=== PATIENT | male | born 1955 | race Caucasian/White ===

== ENCOUNTER 2023-03-22 05:20 | Inpatient (IN) | payer OTHER ==
[~2023-03-22] VITALS: Ht 175.3 cm; Wt 108.9 kg
[2023-03-22] MEDS ORDERED: SCOPOLAMINE HYDROBROMIDE 1 MG PATCH .72 H (TRANSDERM-SCOP) TD ONE ×2 (05:41→06:00)
[2023-03-22] MEDS ORDERED: CELECOXIB 100 MG CAPSULE ONE (05:41)
[2023-03-22] MEDS ORDERED: ACETAMINOPHEN 500 MG TABLET ONE (05:41)
[2023-03-22] MEDS ORDERED: oxyCODONE HCL 10 MG TAB.ER.12H PO ONE ×2 (05:42→06:00)
[2023-03-22] MEDS ORDERED: GABAPENTIN 300 MG CAPSULE ONE (05:42)
[2023-03-22] MEDS ORDERED: GABAPENTIN 400 MG CAPSULE PO ONE (06:00)
[2023-03-22] MEDS ORDERED: ACETAMINOPHEN 500 MG TABLET PO ONE (06:00)
[2023-03-22] MEDS ORDERED: CELECOXIB 100 MG CAPSULE PO ONE (06:00)
[2023-03-22] MEDS ORDERED: CEFAZOLIN SOD 2 GM in D5W 50 ML IV ONE (06:00)
[2023-03-22] MEDS ORDERED: BISACODYL 10 MG/SUPPOSITORY RC PRN (07:15)
[2023-03-22] MEDS ORDERED: LACTULOSE 20 GM/30 ML UDC PO PRN (07:15)
[2023-03-22] MEDS ORDERED: NALOXONE HCL 0.4 MG/ML AMP (NARCAN) IVP PRN ×4 (07:15→08:30)
[2023-03-22] MEDS ORDERED: DIPHENHYDRAMINE HCL 25 MG CAPSULE PO PRN (07:15)
[2023-03-22] MEDS ORDERED: METOCLOPRAMIDE HCL 10 MG/2 ML VIAL IVP PRN ×2 (07:15→08:30)
[2023-03-22] MEDS ORDERED: LR 1,000 ML IV SCH (08:30)
[2023-03-22] MEDS ORDERED: LABETALOL 100 MG/ 20ML VIAL IVP PRN (08:30)
[2023-03-22] MEDS ORDERED: HYDROmorphone 1 MG/ML INJ. CARTRIDGE IVP PRN ×5 (08:30→11:00)
[2023-03-22] MEDS ORDERED: DIPHENHYDRAMINE INJ 50 MG/ML VIAL IVP PRN (08:30)
[2023-03-22] MEDS ORDERED: MEPERIDINE HCL/PF 25 MG/ML DISP.SYRIN IVP PRN (08:30)
[2023-03-22] MEDS ORDERED: hydrALAZINE HCL 20 MG/ML VIAL IVP PRN (08:30)
[2023-03-22] MEDS ORDERED: ONDANSETRON HCL 4 MG/2 ML VIAL IVP PRN ×2 (08:30→11:45)
[2023-03-22] MEDS ORDERED: NOR10 PO (10:23)
[2023-03-22] MEDS ORDERED: LIP20 PO (10:25)
[2023-03-22] MEDS ORDERED: HYDR12.55 PO (10:25)
[2023-03-22] MEDS ORDERED: PRO10 PO (10:26)
[2023-03-22] MEDS ORDERED: LOSA-413 PO (10:26)
[2023-03-22] MEDS ORDERED: TAMS-11 PO (10:26)
[2023-03-22] MEDS: HYDROmorphone 1 MG/ML INJ. CARTRIDGE ONE ×4 (10:27→10:48)
[2023-03-22] MEDS ORDERED: LORATADINE 10 MG TABLET PO PRN (11:00)
[2023-03-22] MEDS ORDERED: oxyCODONE HCL 5 MG TABLET PO PRN ×2 (11:00)
[2023-03-22] MEDS ORDERED: traMADol HCL HCL 50 MG TABLET (ULTRAM) PO PRN (11:00)
[2023-03-22] MEDS ORDERED: TAMSULOSIN HCL 0.4 MG CAP PO ONE (12:30)
[2023-03-22] MEDS: ACETAMINOPHEN 500 MG TABLET PO SCH ×2 (14:14→21:18)
[2023-03-22 20:30] VITALS: BP_SYST 135; PULSE 78; RESP 20; TEMP 97.5; O2SAT 96
[2023-03-22] MEDS ORDERED: ATORVASTATIN 20 MG TABLET PO SCH (21:00)
[2023-03-22] MEDS: SENNOSIDES/DOCUSATE SODIUM 1 TAB TABLET(SENOKOT-S) PO SCH (21:19)
[2023-03-22] MEDS: KETOROLAC TROMETHAMINE 10 MG TABLET (TORADOL) PO SCH (21:19)
[2023-03-22 22:00] VITALS: O2SAT 95
[2023-03-22] MEDS: ceFAZolin SODIUM 2 GM in D5W 50 ML IV SCH ×2 (22:00→23:25)
[2023-03-23] VITALS: BP_SYST 139; PULSE 84; RESP 20; TEMP 98.4; O2SAT 96
[2023-03-23 05:38] LABS: BASOPHILS % (AUTO) 0.1 % (0.0-2.0); HEMATOCRIT 39.1 % (36-54); HEMOGLOBIN 12.6 g/dL (14.0-18.0); LYMPHOCYTES # (AUTO) 1.3 K/uL (1.0-5.5); LYMPHOCYTES % (AUTO) 9.2 % (20.5-51.5); MEAN CORPUSCULAR HEMOGLOBIN 28 pg (27-31); MEAN CORPUSCULAR HGB CONC 32 % (32-36); MEAN CORPUSCULAR VOLUME 87 fL (79.0-98.0); MONOCYTES # (AUTO) 1.2 K/uL (0.0-1.0); MONOCYTES % (AUTO) 8.3 % (1.7-9.3); NEUTROPHILS # (AUTO) 11.5 K/uL (1.8-7.7); NEUTROPHILS % (AUTO) 82.4 % (40.0-70.0); PLATELET COUNT (AUTO) 189 K/uL (130-430); RED BLOOD CELL COUNT(AUTO) 4.49 MIL/uL (4.2-6.2); RED CELL DISTRIBUTION WIDTH 14.5 % (9.0-15.0); WHITE BLOOD COUNT (AUTO) 13.9 K/uL (4.8-10.8)
[2023-03-23] MEDS: ceFAZolin SODIUM 2 GM in D5W 50 ML IV SCH (06:00)
[2023-03-23 06:10] LABS: ALBUMIN 3.4 g/dL (3.4-4.8); CALCIUM 8.8 mg/dL (8.4-11.0); CREATININE 1.07 mg/dL (0.55-1.30); POTASSIUM 3.8 mmol/L (3.5-5.1); TOTAL BILIRUBIN 0.5 mg/dL (0.0-1.0); TOTAL PROTEIN, SERUM 6.7 g/dL (6.4-8.3)
[2023-03-23] MEDS: ACETAMINOPHEN 500 MG TABLET PO SCH (06:33)
[2023-03-23] MEDS: KETOROLAC TROMETHAMINE 10 MG TABLET (TORADOL) PO SCH (06:33)
[2023-03-23] MEDS ORDERED: NS IRRIG SOLN 1000 ML IR ONE (07:21)
[2023-03-23] MEDS ORDERED: KETOROLAC TROMETHAMINE 30 MG VIAL ONE (07:21)
[2023-03-23] MEDS ORDERED: SEVOFLURANE 15 MIN GAS INH ONE (07:21)
[2023-03-23] MEDS ORDERED: BUPIVACAINE /PF 0.25% 30 ML VIAL INJ ONE (07:21)
[2023-03-23] MEDS ORDERED: MIDAZOLAM HCL/PF 2 MG/2 ML SYRINGE ONE (07:21)
[2023-03-23] MEDS ORDERED: DEXAMETHASONE SOD PHOSPHATE 4 MG/ML VIAL ONE (07:21)
[2023-03-23] MEDS ORDERED: TRANEXAMIC ACID 1,000 MG/10 ML VIAL ONE (07:21)
[2023-03-23] MEDS ORDERED: PROPOFOL 200MG/ 20ML VIAL (DIPRIVAN) IV ONE (07:21)
[2023-03-23] MEDS ORDERED: VANCOMYCIN HCL 1000 MG/VIAL IV ONE (07:21)
[2023-03-23] MEDS ORDERED: WATER FOR INJECTION,STERILE 20 ML VIAL IV ONE (07:21)
[2023-03-23] MEDS ORDERED: ONDANSETRON HCL 4 MG/2 ML VIAL ONE (07:21)
[2023-03-23 07:30] VITALS: BP_SYST 138; PULSE 89; RESP 18; TEMP 97.2; O2SAT 95
[2023-03-23] MEDS ORDERED: ASA81 PO (07:40)
[2023-03-23] MEDS ORDERED: ceFAZolin SODIUM 2 GM in D5W 100 ML IV ONE (08:00)
[2023-03-23] MEDS: SENNOSIDES/DOCUSATE SODIUM 1 TAB TABLET(SENOKOT-S) PO SCH (08:59)
[2023-03-23] MEDS ORDERED: TAMSULOSIN HCL 0.4 MG CAP PO SCH (09:00)
[2023-03-23] MEDS ORDERED: LOSARTAN POTASSIUM 50 MG TABLET (COZAAR) PO SCH (09:00)
[2023-03-23] MEDS ORDERED: FLUoxetine HCL 10 MG CAPSULE (PROzac) PO SCH (09:00)
[2023-03-23] MEDS ORDERED: ASPIRIN 81 MG TAB.CHEW PO SCH (09:00)
[2023-03-23] MEDS ORDERED: amLODIPine BESYLATE 10 MG TABLET PO SCH (09:00)
[2023-03-23] MEDS ORDERED: CELECOXIB 200 MG CAPSULE PO SCH (11:00)
[2023-03-23 11:30] VITALS: BP_SYST 136; PULSE 76; RESP 17; TEMP 98.4; O2SAT 94
[2023-03-23 12:37] VITALS: BP_SYST 135; PULSE 86; RESP 18; TEMP 97.2; O2SAT 96
== END 2023-03-23 13:50 | disposition home health service (06) | DRG 470 ==
LOC: SMU 05:20 → EDBD 07:30 → SMU 21:05
PROVIDERS: ADMIT Student in an Organized Health Care Education/Training Program; ATTEND Student in an Organized Health Care Education/Training Program
PROC: 0SRD0J9 Replacement of Left Knee Joint with Synthetic Substitute, Cemented, Open Approach (ICD-10-PCS; principal; 2023-03-22 07:31)
DX: M17.12 Unilateral primary osteoarthritis, left knee (principal)
CPT/HCPCS: 36415; 73560-TC; 80053; 85025; 87081; 88305; 88311; 96379; 97116-GP; 97163-GP; 97530-GP; C1776; J0690; J0696; J1100; J1170; J1885; J2405; J2704; J3370; J3465; J3490; J7060; J7120